=== PATIENT | female | born 1995 | race Caucasian/White ===

== ENCOUNTER 2024-09-27 11:33 | Observation (INO) | payer SELFPAY ==
[2024-09-27] VITALS (16 sets, daily range): BP systolic 92–117; BP diastolic 56–81; PULSE 60–80; RESP 11–18; TEMP 36.2–36.7; O2SAT 93–100; BMI 22.9; BMI 20.7
--- NOTE | 2024-09-27 11:35 | CT_ITS ---
PROCEDURE: STROKE BRAIN/HEAD WITHOUT CONT 09/27/2024 REASON FOR EXAM: NEURO DEFICIT, ACUTE, STROKE SUSPECTED TECHNIQUE: STROKE BRAIN/HEAD WITHOUT CONT Coronal and Sagittal reconstruction series were provided. One or more dose reduction techniques were used (e.g., Automated exposure control, adjustment of the mA and/or kV according to patient size, use of iterative reconstruction technique. RADIATION DOSE SUMMARY: CTDlvol: 44.99 mGy DLP: 762.36 mGycm COMPARISON: None FINDINGS: Brain: Within normal limits for age CSF Spaces: Normal Sinuses/Mastoids: Clear at visualized levels Bones: CT/STROKE Brain/Head without Cont IMPRESSION: NORMAL NONCONTRAST HEAD CT. Reading Location: [facility]
--- NOTE | 2024-09-27 11:35 | CT_ITS ---
PROCEDURE: STROKE BRAIN/HEAD WITHOUT CONT 09/27/2024 REASON FOR EXAM: NEURO DEFICIT, ACUTE, STROKE SUSPECTED TECHNIQUE: STROKE BRAIN/HEAD WITHOUT CONT Coronal and Sagittal reconstruction series were provided. One or more dose reduction techniques were used (e.g., Automated exposure control, adjustment of the mA and/or kV according to patient size, use of iterative reconstruction technique. RADIATION DOSE SUMMARY: CTDlvol: 44.99 mGy DLP: 762.36 mGycm COMPARISON: None FINDINGS: Brain: Within normal limits for age CSF Spaces: Normal Sinuses/Mastoids: Clear at visualized levels Bones: CT/STROKE Brain/Head without Cont IMPRESSION: NORMAL NONCONTRAST HEAD CT. Reading Location: [facility]
--- NOTE | 2024-09-27 11:39 | EKG12_ITS ---
Test Reason : Blood Pressure : */* mmHG Vent. Rate : 65 BPM Atrial Rate : 65 BPM P-R Int : 142 ms QRS Dur : 90 ms QT Int : 414 ms P-R-T Axes : 70 74 53 degrees QTcB Int : 430 ms Normal sinus rhythm Normal ECG Confirmed by SAMY REED, ESAU ([id number]), mapping editor AMINA CHAMBERS ([id number]) on 09/30/2024 7:04:26 AM Referred By: Confirmed By: ESAU PABLO MD
--- NOTE | 2024-09-27 11:39 | EKG12_ITS ---
Test Reason : Blood Pressure : */* mmHG Vent. Rate : 65 BPM Atrial Rate : 65 BPM P-R Int : 142 ms QRS Dur : 90 ms QT Int : 414 ms P-R-T Axes : 70 74 53 degrees QTcB Int : 430 ms Normal sinus rhythm Normal ECG Confirmed by SAMY REED, ESAU ([id number]), script editor AMINA CHAMBERS ([id number]) on 09/30/2024 7:04:26 AM Referred By: Confirmed By: ESAU PABLO MD
--- NOTE | 2024-09-27 11:39 | CT_ITS ---
PROCEDURE: STROKE CTA HEAD AND NECK W/CON 09/27/2024 REASON FOR EXAM: NEURO DEFICIT, ACUTE, STROKE SUSPECTED TECHNIQUE: STROKE CTA HEAD AND NECK W/CON Multiplanar Sagittal and Coronal images were obtained. CONTRAST: Isovue 370 VOLUME: 95 mL One or more dose reduction techniques were used (e.g., Automated exposure control, adjustment of the mA and/or kV according to patient size, use of iterative reconstruction technique). RADIATION DOSE SUMMARY: CTDlvol: 20.5 mGy DLP: 662.75 mGycm COMPARISON: None FINDINGS: Aortic Arch: Normal size and branching pattern. No significant atherosclerotic plaque. Brachiocephalic and Subclavians: Unremarkable RIGHT Carotid: Right CCA: Unremarkable. Right ICA: Unremarkable. Right ECA: Unremarkable. LEFT Carotid: Left CCA: Unremarkable. Left ICA: Unremarkable. Left ECA: Unremarkable. Vertebrals: Codominant. Arise from the subclavians. Both vertebrals form the basilar. RIGHT Vertebral: Unremarkable. LEFT Vertebral: Unremarkable. Anatomy: [place] anatomy is normal. Aneurysm or avm: No intracranial aneurysms or large vascular malformations are identified. Anterior cerebral arteries: Unremarkable: Middle cerebral arteries: Unremarkable. Basilar artery: Unremarkable. Posterior cerebral arteries: Unremarkable. Other major branches of the posterior circulation: Unremarkable. Major venous structures: Unremarkable. Other findings: Neck: Unremarkable lungs: Bones: CT/STROKE CTA Head AND Neck W/Con IMPRESSION: No abnormality is seen. Reading Location: [id number]
[2024-09-27 11:47] LABS: Hematocrit 41.6 % (37-47); Hemoglobin 15.0 g/dL (12.0-15.0); Immature Granulocytes Count 0.010 X10^3/uL (0.0-0.0); Mean Corp Hgb Conc 36.1 g/dL (32-36); Mean Corpuscular Volume 88.7 fL (81-99); Mean Platelet Vol. 9.3 fl (6.2-12.0); NRBC Flagged by Analyzer 0 % (0-5); Platelet Count 294 K/mm3 (150-450); RBC Distribution Width CV 11.5 % (11.6-14.6); RBC Distribution Width SD 36.5 fl (35.1-43.9); Red Blood Count 4.69 M/mm3 (4.2-5.4); White Blood Count 5.8 K/mm3 (4.4-11.0)
[2024-09-27 11:58] LABS: Prothrombin Time (Protime)PT. 14.4 SECONDS (11.7-14.9)
[2024-09-27 11:59] LABS: Partial Thromboplast Time 30.1 Seconds (24.1-36.2)
[2024-09-27 12:13] LABS: Anion Gap 13 (5-15); BUN 6 mg/dL (4-19); BUN/Creat Ratio 8.1 RATIO (10-20); Calcium,Total 9.8 mg/dL (7.6-11.0); Carbon Dioxide 22.4 mmol/L (21.0-32.0); Chloride 102 mmol/L (98-108); Estimated Creatinine Clearance 86.75 ml/min (50-250); Free T3 3.1 pg/mL (2.18-3.98); Glucose 98 mg/dL (70-99); Potassium 4.2 mmol/L (3.3-5.1); Troponin T High Sensitivity < 6 ng/L (<=14)
[2024-09-27] MEDS: 0.9% Normal Saline (1000mL) 1,000 ML 999 ML IV (12:14)
--- NOTE | 2024-09-27 12:20 | RAD_ITS ---
PROCEDURE: CHEST 1 VIEW 09/27/2024 REASON FOR EXAM: NEURO DEFICIT, ACUTE, STROKE SUSPECTED TECHNIQUE: Frontal view of the chest. COMPARISON: None. RAD/Chest 1 View IMPRESSION: No evidence of pulmonary edema. Lungs appear clear throughout. No pleural effusion or pneumothorax is noted. The cardiomediastinal silhouette is within the normal range. No acute osseous process is seen. Negative examination. Reading Location: [place] [address]
--- NOTE | 2024-09-27 12:20 | RAD_ITS ---
PROCEDURE: CHEST 1 VIEW 09/27/2024 REASON FOR EXAM: NEURO DEFICIT, ACUTE, STROKE SUSPECTED TECHNIQUE: Frontal view of the chest. COMPARISON: None. RAD/Chest 1 View IMPRESSION: No evidence of pulmonary edema. Lungs appear clear throughout. No pleural effusion or pneumothorax is noted. The cardiomediastinal silhouette is within the normal range. No acute osseous process is seen. Negative examination. Reading Location: [place] [address]
--- NOTE | 2024-09-27 12:42 | CM.ED ---
Social work Reason for referral: stroke alert SW responded to the stroke alert called in [facility] ED triage. Patient went to imaging and SW was unable to have any emergency contacts to call due to this being patient's first time at [facility]. SW entered patient's room, introducing self and role at [facility]. Patient welcomed SW visit and stated feeling better at this point in time. Patient stated being independently contracted through a [employer] and was at [facility] for a patient when patient started feeling off. Patient stated getting migraines often, but patient's symptoms felt different than normal and patient drove self to [facility] ED. Patient stated patient's was on the way here. Patient denied needing local resources for a PCP or needing resources for being self pay currently. Patient denied needing further resources or supports either. Active listening and supportive presence provided with patient. Laura Giron, FINANCE INSURANCE MANAGER, SWAT TEAM MEMBER
--- NOTE | 2024-09-27 12:42 | CM.ED ---
Social work Reason for referral: stroke alert SW responded to the stroke alert called in [facility] ED triage. Patient went to imaging and SW was unable to have any emergency contacts to call due to this being patient's first time at [facility]. SW entered patient's room, introducing self and role at [facility]. Patient welcomed SW visit and stated feeling better at this point in time. Patient stated being independently contracted through a [employer] and was at [facility] for a patient when patient started feeling off. Patient stated getting migraines often, but patient's symptoms felt different than normal and patient drove self to [facility] ED. Patient stated patient's was on the way here. Patient denied needing local resources for a PCP or needing resources for being self pay currently. Patient denied needing further resources or supports either. Active listening and supportive presence provided with patient. Laura Giron, CODING MANAGER, SITE ACQUISITION SPECIALIST
--- NOTE | 2024-09-27 13:11 | EX.ED.DYSGE1 ---
HPI History of Present Illness Chief Complaint: Stroke Alert Narrative Narrative: Patient is a 28-year-old headaches to the emergency department from work with complaint of changes in vision, difficulty speaking, right-sided numbness. Patient states that her symptoms started around 9 AM this morning. She noted that while at work she developed a headache and then her symptoms persisted and therefore staff sent her down here to be further evaluated. Patient denies any blood thinning medications PFSH PFSH Home Medications ?Medication ?Instructions ?Recorded ?Last Taken ?Type NK 09/27/24 Unknown History Allergy/AdvReac Type Severity Reaction Status Date / Time No Known Allergies Allergy Verified 09/27/24 11:43 Surgical History History of partial hysterectomy Social History Smoking Status: Former smoker ROS ROS ED ROS Narrative Constitutional: Complained of headache as noted above Eyes: Complains of changes in vision double vision Cardiovascular: Denies chest pain Respiratory: Denies coughing wheezing shortness of breath Abdomen: Denies abdominal pain nausea vomit diarrhea : Denies any urinary symptoms Neurological: Complains of right-sided weakness as noted above Musculoskeletal: Denies back pain Skin: Denies any rashes or lesions EXAM Physical Exam Narrative Exam Narrative: General: Patient was sitting in triage in wheelchair did not appear to be upset with tears noted Head: Atraumatic, normocephalic Eyes: PERRL bilaterally, EOMI biotic no conjunctival injection noted Neck: Soft, supple, trachea midline Cardiovascular: Regular rate and rhythm no murmurs gallops rubs noted Respiratory: Clear to auscultation bilaterally Abdomen: Soft, nondistended, nontender to palpation Extremities: +5/5 strength noted in the bilateral upper and lower extremities, radial pulses +2/4 in bladder extremities, no pedal edema on exam Neurological: Patient following commands and that she was at the hospital there is 2024. NIH of 1 GCS 15 Skin: Warm, dry, intact no rashes lesions noted Const Vital Signs: 09/27/24 11:39 09/27/24 11:40 09/27/24 11:49 Temperature 97.1 F L Temperature Source Temporal Pulse Rate 71 79 79 Respiratory Rate 16 16 16 Blood Pressure 116/78 117/81 H 117/81 H Blood Pressure Mean 90 93 93 Pulse Ox 100 99 99 Oxygen Delivery Method Room Air Room Air Room Air 09/27/24 11:53 09/27/24 12:09 09/27/24 12:29 Temperature Temperature Source Pulse Rate 74 80 Respiratory Rate 16 16 Blood Pressure 116/70 101/63 Blood Pressure Mean 85 75 Pulse Ox 93 95 97 Oxygen Delivery Method Room Air Room Air Room Air 09/27/24 12:29 09/27/24 12:45 09/27/24 13:00 Temperature Temperature Source Pulse Rate 71 66 78 Respiratory Rate 16 16 16 Blood Pressure 101/63 101/75 95/74 Blood Pressure Mean 75 83 81 Pulse Ox 97 97 97 Oxygen Delivery Method Room Air Room Air Room Air 09/27/24 13:00 09/27/24 13:06 09/27/24 13:30 Temperature Temperature Source Pulse Rate 76 76 62 Respiratory Rate 16 16 16 Blood Pressure 95/74 95/74 100/65 Blood Pressure Mean 81 81 76 Pulse Ox 97 97 100 Oxygen Delivery Method Room Air Room Air Room Air 09/27/24 14:00 Temperature Temperature Source Pulse Rate 69 Respiratory Rate 11 L Blood Pressure 102/65 Blood Pressure Mean 76 Pulse Ox 100 Oxygen Delivery Method MDM MDM MDM Narrative Medical decision making narrative: Patient is a 28-year-old female who presents to the emergency department chief complaint of dysarthria, numbness and tingling the right side of her body changes in vision as well as a headache. On the differential diagnosis includes but not limited to intracranial hemorrhage, aneurysm, complex migraine. Once workup is obtained reviewed he will be reevaluated. Patient will be given Tylenol and Reglan. Patient CBC reviewed showed no evidence leukocytosis white blood count 5.8, he was 15, plate count of 294. Patient INR normal at 1.1, PT of 14.4. Patient sodium was 137, potassium normal 4.2, creatinine was 0.75. Patient troponin was less than 6 with a delta pending patient's EKG showed sinus rhythm with a rate of 65 bpm. Patient's TSH normal 1.78, free T4 and T3 of 1.30 and 3.1 respectively. Patient chest x-ray reviewed by myself and by radiology showed no acute cardiopulmonary processes. Patient's CT head and brain without contrast showed no acute findings.. CTA head and neck showed no abnormalities noted. Patient was evaluated by teleneurologist Dr. Andres and after discussion we do feel that the risk of tenecteplase outweigh the benefits at this point in time and after discussion with the patient and she would like to hold off. Per teleneurology they are still recommending admission for MRI although this was likely complex migraine. Will discuss case with hospitalist for admission. Patient symptoms have resolved. Discussed case with hospitalist Dr. Hines who accept patient for admission. Patient notified is agreeable this plan all question concerns answered. Lab Data Labs: Laboratory Results - last 24 hr 09/27/24 09/27/24 11:37 11:38 WBC 5.8 RBC 4.69 Hgb 15.0 Hct 41.6 MCV 88.7 MCH 32.0 MCHC 36.1 H RDW Std Deviation 36.5 RDW Coeff of Ghulam 11.5 L Plt Count 294 MPV 9.3 Immature Gran % (Auto) 0.200 Neut % (Auto) 58.6 Lymph % (Auto) 33.7 [place] % (Auto) 5.6 Eos % (Auto) 1.0 Baso % (Auto) 0.9 Absolute Neuts (auto) 3.4 Absolute Lymphs (auto) 1.94 Nucleated RBC % 0 PT 14.4 INR 1.1 APTT 30.1 Sodium 137 Potassium 4.2 Chloride 102 Carbon Dioxide 22.4 Anion Gap 13 BUN 6 Creatinine 0.75 Estim Creat Clear Calc 86.75 Est GFR (MDRD) Non-Af 110 BUN/Creatinine Ratio 8.1 L Glucose 98 Calcium 9.8 Troponin T High Sens < 6 TSH 1.780 Free T4 1.30 Free T3 pg/dL 3.1 POC Glucose 96 Radiography Diagnostic Testing: Clinical Impression(s) from Imaging Studies Brain CT 09/27/24 11:35 IMPRESSION: NORMAL NONCONTRAST HEAD CT. Reading Location: [id number] Head/Neck CTA 09/27/24 11:39 IMPRESSION: No abnormality is seen. Reading Location: [id number] Chest X-Ray 09/27/24 12:20 IMPRESSION: No evidence of pulmonary edema. Lungs appear clear throughout. No pleural effusion or pneumothorax is noted. The cardiomediastinal silhouette is within the normal range. No acute osseous process is seen. Negative examination. Reading Location: [place] [address] Discharge Plan Triage Chief Complaint: Stroke Alert ED Provider: Matthew Mead Dx/Rx/DC Orders Clinical Impression: Right arm numbness, Numbness and tingling of right leg, Changes in vision, Headache Prescriptions: No Action NK Primary Care Provider: Care Physician,No Primary Referrals: Care Physician,No Primary [Primary Care Provider] - Print Language: Kazakh Disposition Disposition: Acute Care Hospital [facility]
--- NOTE | 2024-09-27 14:08 | PCM.HP.STD ---
HPI - General General Date of Admission: 09/27/24 Date of Service: 09/27/24 Chief Complaint: Headache with strokelike symptoms HPI Narrative VINITA HIDALGO, is a 28 F who presented to [facility] ED on 09/27/2024 with headache and strokelike symptoms. Patient presented from work with complaint of vision changes, difficulty speaking and right-sided facial numbness. Has history of migraines but has never had secondary symptoms like these before. She typically takes Excedrin for the migraines with mild to moderate relief. Has never been on any other medications for migraines. In the ED she was normotensive, normal sinus rhythm, satting well on room air. CBC and BMP were benign. CT brain and CTA head/neck were unremarkable. Chest x-ray unremarkable. Evaluated by teleneurology who noted the symptoms are likely secondary to complex migraine but cannot rule out stroke, so recommended admission for stroke evaluation. Hospitalist was then contacted for admission. I saw the patient at bedside in the ED, several family members were present. Patient was mildly fatigued appearing but otherwise sitting back comfortably in bed, conversing normally and in no acute distress. She reported continued headache though it is improved from earlier. Denies any vision changes or facial numbness. Is not having any difficulty with speaking. Has mild nausea currently, improved from previous. No other acute concerns currently. Will be admitted for further management. [facility] Home Medications ?Medication ?Instructions ?Recorded ?Last Taken ?Type NK 09/27/24 Unknown History Allergy/AdvReac Type Severity Reaction Status Date / Time No Known Allergies Allergy Verified 09/27/24 11:43 Surgical History History of partial hysterectomy Social History Smoking Status: Former smoker ROS Constitutional Constitutional: Reports fatigue; Denies chills, fever(s) or weakness Eyes Eyes: Denies change in vision Cardiovascular Cardiovascular: Denies chest pain Respiratory/Chest Respiratory/Chest: Denies shortness of breath at rest Gastrointestinal Gastrointestinal: Reports nausea; Denies abdominal pain or vomiting Neurologic Neurologic: Reports headache(s); Denies abnormal speech, confusion, dizziness, focal weakness, numbness or tingling Vital Signs Vital Signs Vital Signs: 09/27/24 11:39 09/27/24 11:40 09/27/24 11:49 Temperature 97.1 F L Temperature Source Temporal Pulse Rate 71 79 79 Respiratory Rate 16 16 16 Blood Pressure 116/78 117/81 H 117/81 H Blood Pressure Mean 90 93 93 Pulse Ox 100 99 99 Oxygen Delivery Method Room Air Room Air Room Air 09/27/24 11:53 09/27/24 12:09 09/27/24 12:29 Temperature Temperature Source Pulse Rate 74 80 Respiratory Rate 16 16 Blood Pressure 116/70 101/63 Blood Pressure Mean 85 75 Pulse Ox 93 95 97 Oxygen Delivery Method Room Air Room Air Room Air 09/27/24 12:29 09/27/24 12:45 09/27/24 13:00 Temperature Temperature Source Pulse Rate 71 66 78 Respiratory Rate 16 16 16 Blood Pressure 101/63 101/75 95/74 Blood Pressure Mean 75 83 81 Pulse Ox 97 97 97 Oxygen Delivery Method Room Air Room Air Room Air 09/27/24 13:00 09/27/24 13:06 09/27/24 13:30 Temperature Temperature Source Pulse Rate 76 76 62 Respiratory Rate 16 16 16 Blood Pressure 95/74 95/74 100/65 Blood Pressure Mean 81 81 76 Pulse Ox 97 97 100 Oxygen Delivery Method Room Air Room Air Room Air 09/27/24 14:00 Temperature Temperature Source Pulse Rate 69 Respiratory Rate 11 L Blood Pressure 102/65 Blood Pressure Mean 76 Pulse Ox 100 Oxygen Delivery Method Weight Weight: 57 kg Body Mass Index (BMI) 22.9 Physical Exam Const alert, oriented x3, no apparent distress, average body habitus, healthy appearing and well nourished Constitutional Narrative: Pleasant younger female, mildly fatigued appearing but otherwise sitting back comfortably in bed, conversing normally, in no acute distress. General Appearance: cooperative, comfortable, well kempt and well developed HEENT normocephalic, head/scalp atraumatic, hearing grossly normal bilaterally, nasal mucous membranes and turbinates normal and moist oral mucous membranes Eyes PERRL, EOMs intact bilaterally and conjunctivae normal Neck full ROM Chest inspection of chest normal Resp normal respiratory effort, normal air movement, no use of accessory muscles and clear to auscultation bilaterally Cardio regular rate, regular rhythm, no murmurs and peripheral pulses 2+ throughout GI normal to inspection, nondistended, normoactive bowel sounds, soft to palpation, non-tender and non-distended Back/Spine normal ROM Extremity normal to inspection, full ROM and no pedal edema Skin no rashes or lesions noted Neuro CN's II-XII intact bilaterally, moves all extremities and no focal motor deficits Speech: speech normal Motor Exam: strength 5/5 throughout Psych mental status grossly normal Results Lab / Micro Data 09/27/24 11:38 09/27/24 11:38 Labs: Laboratory Results - last 24 hr 09/27/24 11:37: POC Glucose 96 09/27/24 11:38: WBC 5.8, RBC 4.69, Hgb 15.0, Hct 41.6, MCV 88.7, MCH 32.0, MCHC 36.1 H, RDW Std Deviation 36.5, RDW Coeff of Ghulam 11.5 L, Plt Count 294, MPV 9.3, Immature Gran % (Auto) 0.200, Neut % (Auto) 58.6, Lymph % (Auto) 33.7, [place] % (Auto) 5.6, Eos % (Auto) 1.0, Baso % (Auto) 0.9, Absolute Neuts (auto) 3.4, Absolute Lymphs (auto) 1.94, Nucleated RBC % 0, PT 14.4, INR 1.1, APTT 30.1, Sodium 137, Potassium 4.2, Chloride 102, Carbon Dioxide 22.4, Anion Gap 13, BUN 6, Creatinine 0.75, Estim Creat Clear Calc 86.75, Est GFR (MDRD) Non-Af 110, BUN/Creatinine Ratio 8.1 L, Glucose 98, Calcium 9.8, Troponin T High Sens < 6, TSH 1.780, Free T4 1.30, Free T3 pg/dL 3.1 Imaging Radiology Impression Brain CT 09/27/24 11:35 IMPRESSION: NORMAL NONCONTRAST HEAD CT. Reading Location: [id number] Head/Neck CTA 09/27/24 11:39 IMPRESSION: No abnormality is seen. Reading Location: [id number] Chest X-Ray 09/27/24 12:20 IMPRESSION: No evidence of pulmonary edema. Lungs appear clear throughout. No pleural effusion or pneumothorax is noted. The cardiomediastinal silhouette is within the normal range. No acute osseous process is seen. Negative examination. Reading Location: [place] [address] Assessment & Plan Assessment/Plan (1) Headache: (2) Changes in vision: PLAN: Plan Patient is a 28-year-old female who presented [facility] ED on 09/27/2024 with headache and strokelike symptoms. 1. Headache with strokelike symptoms with history of migraines, CVA rule out ? Admit under observation status to PCU. Neurology consulted. Presented with headache with vision changes, difficulty speaking and right facial numbness. NIH score of [address] brain and CTA head/neck negative. Has history of migraines, typically has around 2 a month and takes Excedrin for relief. Strong family history of migraines, other family members have taken Topamax and/or triptans for relief. Seems most consistent with complex migraine but cannot rule out CVA. Orders placed per stroke protocol order set. MRI brain and echo with bubble study ordered. Lipid panel, A1c and TSH ordered. Given Tylenol 1 g and IV Reglan in the ED with moderate relief of headache. Tylenol ordered as needed and can order Reglan dosing as needed for worsening headache while inpatient. DVT prophylaxis: SCDs CODE STATUS: Full code, verified Expect disposition: Home, 1 to 2 days Total clinical time spent by myself addressing the patient's medical issues, reviewing all the data, and collaborating with patient's care team: 55 minutes. Charges/Coding Visit Charges Inpatient E&M: 48800 Init Hosp L2
--- NOTE | 2024-09-27 14:08 | PCM.HP.STD ---
HPI - General General Date of Admission: 09/27/24 Date of Service: 09/27/24 Chief Complaint: Headache with strokelike symptoms HPI Narrative VINITA HIDALGO, is a 28 F who presented to [facility] ED on 09/27/2024 with headache and strokelike symptoms. Patient presented from work with complaint of vision changes, difficulty speaking and right-sided facial numbness. Has history of migraines but has never had secondary symptoms like these before. She typically takes Excedrin for the migraines with mild to moderate relief. Has never been on any other medications for migraines. In the ED she was normotensive, normal sinus rhythm, satting well on room air. CBC and BMP were benign. CT brain and CTA head/neck were unremarkable. Chest x-ray unremarkable. Evaluated by teleneurology who noted the symptoms are likely secondary to complex migraine but cannot rule out stroke, so recommended admission for stroke evaluation. Hospitalist was then contacted for admission. I saw the patient at bedside in the ED, several family members were present. Patient was mildly fatigued appearing but otherwise sitting back comfortably in bed, conversing normally and in no acute distress. She reported continued headache though it is improved from earlier. Denies any vision changes or facial numbness. Is not having any difficulty with speaking. Has mild nausea currently, improved from previous. No other acute concerns currently. Will be admitted for further management. [facility] Home Medications ?Medication ?Instructions ?Recorded ?Last Taken ?Type NK 09/27/24 Unknown History Allergy/AdvReac Type Severity Reaction Status Date / Time No Known Allergies Allergy Verified 09/27/24 11:43 Surgical History History of partial hysterectomy Social History Smoking Status: Former smoker ROS Constitutional Constitutional: Reports fatigue; Denies chills, fever(s) or weakness Eyes Eyes: Denies change in vision Cardiovascular Cardiovascular: Denies chest pain Respiratory/Chest Respiratory/Chest: Denies shortness of breath at rest Gastrointestinal Gastrointestinal: Reports nausea; Denies abdominal pain or vomiting Neurologic Neurologic: Reports headache(s); Denies abnormal speech, confusion, dizziness, focal weakness, numbness or tingling Vital Signs Vital Signs Vital Signs: 09/27/24 11:39 09/27/24 11:40 09/27/24 11:49 Temperature 97.1 F L Temperature Source Temporal Pulse Rate 71 79 79 Respiratory Rate 16 16 16 Blood Pressure 116/78 117/81 H 117/81 H Blood Pressure Mean 90 93 93 Pulse Ox 100 99 99 Oxygen Delivery Method Room Air Room Air Room Air 09/27/24 11:53 09/27/24 12:09 09/27/24 12:29 Temperature Temperature Source Pulse Rate 74 80 Respiratory Rate 16 16 Blood Pressure 116/70 101/63 Blood Pressure Mean 85 75 Pulse Ox 93 95 97 Oxygen Delivery Method Room Air Room Air Room Air 09/27/24 12:29 09/27/24 12:45 09/27/24 13:00 Temperature Temperature Source Pulse Rate 71 66 78 Respiratory Rate 16 16 16 Blood Pressure 101/63 101/75 95/74 Blood Pressure Mean 75 83 81 Pulse Ox 97 97 97 Oxygen Delivery Method Room Air Room Air Room Air 09/27/24 13:00 09/27/24 13:06 09/27/24 13:30 Temperature Temperature Source Pulse Rate 76 76 62 Respiratory Rate 16 16 16 Blood Pressure 95/74 95/74 100/65 Blood Pressure Mean 81 81 76 Pulse Ox 97 97 100 Oxygen Delivery Method Room Air Room Air Room Air 09/27/24 14:00 Temperature Temperature Source Pulse Rate 69 Respiratory Rate 11 L Blood Pressure 102/65 Blood Pressure Mean 76 Pulse Ox 100 Oxygen Delivery Method Weight Weight: 57 kg Body Mass Index (BMI) 22.9 Physical Exam Const alert, oriented x3, no apparent distress, average body habitus, healthy appearing and well nourished Constitutional Narrative: Pleasant younger female, mildly fatigued appearing but otherwise sitting back comfortably in bed, conversing normally, in no acute distress. General Appearance: cooperative, comfortable, well kempt and well developed HEENT normocephalic, head/scalp atraumatic, hearing grossly normal bilaterally, nasal mucous membranes and turbinates normal and moist oral mucous membranes Eyes PERRL, EOMs intact bilaterally and conjunctivae normal Neck full ROM Chest inspection of chest normal Resp normal respiratory effort, normal air movement, no use of accessory muscles and clear to auscultation bilaterally Cardio regular rate, regular rhythm, no murmurs and peripheral pulses 2+ throughout GI normal to inspection, nondistended, normoactive bowel sounds, soft to palpation, non-tender and non-distended Back/Spine normal ROM Extremity normal to inspection, full ROM and no pedal edema Skin no rashes or lesions noted Neuro CN's II-XII intact bilaterally, moves all extremities and no focal motor deficits Speech: speech normal Motor Exam: strength 5/5 throughout Psych mental status grossly normal Results Lab / Micro Data 09/27/24 11:38 09/27/24 11:38 Labs: Laboratory Results - last 24 hr 09/27/24 11:37: POC Glucose 96 09/27/24 11:38: WBC 5.8, RBC 4.69, Hgb 15.0, Hct 41.6, MCV 88.7, MCH 32.0, MCHC 36.1 H, RDW Std Deviation 36.5, RDW Coeff of Ghulam 11.5 L, Plt Count 294, MPV 9.3, Immature Gran % (Auto) 0.200, Neut % (Auto) 58.6, Lymph % (Auto) 33.7, [place] % (Auto) 5.6, Eos % (Auto) 1.0, Baso % (Auto) 0.9, Absolute Neuts (auto) 3.4, Absolute Lymphs (auto) 1.94, Nucleated RBC % 0, PT 14.4, INR 1.1, APTT 30.1, Sodium 137, Potassium 4.2, Chloride 102, Carbon Dioxide 22.4, Anion Gap 13, BUN 6, Creatinine 0.75, Estim Creat Clear Calc 86.75, Est GFR (MDRD) Non-Af 110, BUN/Creatinine Ratio 8.1 L, Glucose 98, Calcium 9.8, Troponin T High Sens < 6, TSH 1.780, Free T4 1.30, Free T3 pg/dL 3.1 Imaging Radiology Impression Brain CT 09/27/24 11:35 IMPRESSION: NORMAL NONCONTRAST HEAD CT. Reading Location: [id number] Head/Neck CTA 09/27/24 11:39 IMPRESSION: No abnormality is seen. Reading Location: [id number] Chest X-Ray 09/27/24 12:20 IMPRESSION: No evidence of pulmonary edema. Lungs appear clear throughout. No pleural effusion or pneumothorax is noted. The cardiomediastinal silhouette is within the normal range. No acute osseous process is seen. Negative examination. Reading Location: [place] [id number] Assessment & Plan Assessment/Plan (1) Headache: (2) Changes in vision: PLAN: Plan Patient is a 28-year-old female who presented [facility] ED on 09/27/2024 with headache and strokelike symptoms. 1. Headache with strokelike symptoms with history of migraines, CVA rule out ? Admit under observation status to PCU. Neurology consulted. Presented with headache with vision changes, difficulty speaking and right facial numbness. NIH score of [address] brain and CTA head/neck negative. Has history of migraines, typically has around 2 a month and takes Excedrin for relief. Strong family history of migraines, other family members have taken Topamax and/or triptans for relief. Seems most consistent with complex migraine but cannot rule out CVA. Orders placed per stroke protocol order set. MRI brain and echo with bubble study ordered. Lipid panel, A1c and TSH ordered. Given Tylenol 1 g and IV Reglan in the ED with moderate relief of headache. Tylenol ordered as needed and can order Reglan dosing as needed for worsening headache while inpatient. DVT prophylaxis: SCDs CODE STATUS: Full code, verified Expect disposition: Home, 1 to 2 days Total clinical time spent by myself addressing the patient's medical issues, reviewing all the data, and collaborating with patient's care team: 55 minutes. Charges/Coding Visit Charges Inpatient E&M: 23984 Init Hosp L2
--- NOTE | 2024-09-27 14:15 | MRI_ITS ---
EXAM: MRI brain without contrast CLINICAL HISTORY: Stroke-like symptoms COMPARISON: Noncontrast CT head, CTA head and neck 09/27/2024. TECHNIQUE: MRI of the brain was performed according to standard departmental protocol utilizing: Sagittal and axial T1, axial FLAIR, fat saturated fast spin echo axial T2, Susceptibility, and coronal T1 -weighted image were obtained. FINDINGS: The ventricles, sulci, and cisterns are age-appropriate in size. There is no evidence of acute intracranial bleed or focal infarction. There is no midline shift, mass effect, or extra-axial collection. No area of restricted diffusion are identified on DWI images. No abnormal T2 bright signal in the white matter is identified. The basal ganglia, aaliyah, pituitary, corpus callosum and cerebellum appear normal. The visualized paranasal sinuses, mastoids, and orbits are unremarkable. The flow voids of the major intracranial vessels are patent. The visualized extracranial structures, within limits of technique, are not otherwise remarkable. MRI/Brain without Contrast IMPRESSION: Unremarkable noncontrast MRI brain. Reading Location: [id number]
--- NOTE | 2024-09-27 14:15 | MRI_ITS ---
EXAM: MRI brain without contrast CLINICAL HISTORY: Stroke-like symptoms COMPARISON: Noncontrast CT head, CTA head and neck 09/27/2024. TECHNIQUE: MRI of the brain was performed according to standard departmental protocol utilizing: Sagittal and axial T1, axial FLAIR, fat saturated fast spin echo axial T2, Susceptibility, and coronal T1 -weighted image were obtained. FINDINGS: The ventricles, sulci, and cisterns are age-appropriate in size. There is no evidence of acute intracranial bleed or focal infarction. There is no midline shift, mass effect, or extra-axial collection. No area of restricted diffusion are identified on DWI images. No abnormal T2 bright signal in the white matter is identified. The basal ganglia, aaliyah, pituitary, corpus callosum and cerebellum appear normal. The visualized paranasal sinuses, mastoids, and orbits are unremarkable. The flow voids of the major intracranial vessels are patent. The visualized extracranial structures, within limits of technique, are not otherwise remarkable. MRI/Brain without Contrast IMPRESSION: Unremarkable noncontrast MRI brain. Reading Location: [id number]
[2024-09-27 14:26] LABS: Troponin T High Sens 2 HR < 6 ng/L (<=14)
--- NOTE | 2024-09-27 14:52 | CHAPLAIN ---
Type of Pastoral Visit _x__ Initial Visit ___ Follow-up Visit ___ On-call Visit ___ General Patient Visit ___ Spiritual Assessment ___ Family Conference ___ Bereavement ___ Rapid Response ___ Code Blue ___ Other (describe below) Pastoral Care Referral From ___ Patient ___ Family ___ Nurse ___ Physician _x__ Front Sight Attacher ___ Mobile Home Laborer ___ Other (describe below) Sacrament/Intervention ___ Active listening ___ Anointing ___ Hoahaoism ___ Bereavement ___ Communion ___ Maggy exploration ___ ___ Life review ___ Prayer ___ Reconciliation ___ Sacrament of Sick _x__ Supportive presence ___ Wedding ___ Other (describe below) Pastoral Comments SW recommended a visit to this patient waiting in the ED to be moved to a room; patient is not from around here and is was thought that she might like company and support; entering room, this m1 armor crewman discovered several family members who had come to the hospital in support of pt; 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
--- NOTE | 2024-09-27 14:52 | CHAPLAIN ---
Type of Pastoral Visit _x__ Initial Visit ___ Follow-up Visit ___ On-call Visit ___ General Patient Visit ___ Spiritual Assessment ___ Family Conference ___ Bereavement ___ Rapid Response ___ Code Blue ___ Other (describe below) Pastoral Care Referral From ___ Patient ___ Family ___ Nurse ___ Physician _x__ Librarian School ___ [place] Worker Helper ___ Other (describe below) Sacrament/Intervention ___ Active listening ___ Anointing ___ Mu-Ism ___ Bereavement ___ Communion ___ Maggy exploration ___ ___ Life review ___ Prayer ___ Reconciliation ___ Sacrament of Sick _x__ Supportive presence ___ Wedding ___ Other (describe below) Pastoral Comments SW recommended a visit to this patient waiting in the ED to be moved to a room; patient is not from around here and is was thought that she might like company and support; entering room, this nephrologist discovered several family members who had come to the hospital in support of pt; 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
[2024-09-27] MEDS: Acetaminophen/Butalbital/Caffe 1 Tablet PO (16:20)
[2024-09-27 17:52] LABS: Troponin T High Sens 4 HR < 6 ng/L (<=14)
[2024-09-28 01:00] VITALS: BP 91/61; PULSE 73; RESP 16; TEMP 36.6; O2SAT 97
[2024-09-28 04:01] VITALS: BMI 20.7
[2024-09-28 04:30] VITALS: BP 94/61; PULSE 85; RESP 16; TEMP 36.4; O2SAT 98
[2024-09-28 08:01] LABS: Cholesterol 129 mg/dL (<=200); Low Density Lipoprotein Calc. 49 mg/dL; Triglycerides 45 mg/dL; Very Low Density Lipoprotein 9 mg/dL (5-40); cholesterol:hdl ratio screen 1.83
[2024-09-28 08:07] VITALS: BMI 20.7
[2024-09-28 09:23] VITALS: BP 93/55; PULSE 61; RESP 18; TEMP 36.4; O2SAT 100
--- NOTE | 2024-09-28 09:59 | DCINST_ITS ---
Discharge Instructions DC O2, CPAP, BIPAP needs Home O2 Discharge instructions: No Dressing / Incision Discharge Activity: - (Increase activity as tolerated) Follow Up Care Test Results: Test results from this visit will be discussed in further detail at your follow- up appointment, if applicable. Discharge Plan Admission Admit Date/Time: 09/27/24 14:12 Primary Reason for Your Visit: Complex migraine Attending Provider: Nolvia Irvin Primary Care Provider: Care Physician,No Primary Consulting Providers: Faizan Matthews; Kale Hill; Esperanza Andres; Carissa Hagan; Michelle Javed; Aung Mcdonald; Chasity Briones; Tang Harrington; Deion Lewis; Jack Oneill; Carolyn Eaton; Jasen Rollins; Missy Blackwood; Marina Irving; Janneth Antunez; Ramesh Lozano; Thania Cespedes; Darío Aguila; Kellee Tucker; Stan Juarez; Jay Hines Instructions Patient Instructions: Migraine Triggers, ED, Migraine (Classical) Additional Instructions / Restrictions: - It is advised you schedule a follow-up appoint with a primary care physician in your area -For any concerning signs or symptoms please call 911 or proceed to the nearest emergency department -Please follow-up with neurology upon discharge for suspected complex migraine, please call Dr. Anaya's office upon discharge to schedule an appointment for suspected complex migraine (ph [phone]) Discharge Orders/Prescriptions Prescriptions: No Action NK Referrals / Follow Up: Martín Anaya MD [Non-Staff -Ordering Privileges] - Care Physician,No Primary [Primary Care Provider] - (It is advised you schedule a follow-up appoint with a primary care physician in your area) Disposition Disposition (needs filled in before D/C Order can be placed): Home, Self Care
--- NOTE | 2024-09-28 10:02 | PCM.DC.SUM ---
Providers Date of Admission: 09/27/24 Date of Discharge: 09/28/24 Primary Care Physician: Sarah Primary Care Phys Consultations 09/27/24 15:58 Consult: Tele-Neurology Routine Consulting Provider: [facility] Reason for Consult: Acute Ischemic Stroke/TIA EMERGENT Consult: No Notified: Yes Date Notified: 09/27/24 Time Notified: 16:50 Method of Notification: Answering Service Nursing Unit Staff Notify [facility] of Tele-Neurology Consult: Yes Reason For Visit: STROKELIKE SYMPTOMS Diagnosis Discharge Diagnosis (1) Headache: Status: Acute Code(s): R51.9 - Headache, unspecified (2) Changes in vision: Status: Acute Code(s): H53.9 - Unspecified visual disturbance (3) Migraine: Status: Acute Code(s): G43.909 - Migraine, unspecified, not intractable, without status migrainosus Plan #Complex migraine Medications at Discharge Home Medications NK 09/27/24 Hospital Course Summary of Care Provided Minutes Spent on Discharge: 20 Hospital Course: Per HPI: VINITA HIDALGO, is a 28 F who presented to [facility] ED on 09/27/2024 with headache and strokelike symptoms. Patient presented from work with complaint of vision changes, difficulty speaking and right-sided facial numbness. Has history of migraines but has never had secondary symptoms like these before. She typically takes Excedrin for the migraines with mild to moderate relief. Has never been on any other medications for migraines. In the ED she was normotensive, normal sinus rhythm, satting well on room air. CBC and BMP were benign. CT brain and CTA head/neck were unremarkable. Chest x-ray unremarkable. Evaluated by teleneurology who noted the symptoms are likely secondary to complex migraine but cannot rule out stroke, so recommended admission for stroke evaluation. Hospitalist was then contacted for admission. I saw the patient at bedside in the ED, several family members were present. Patient was mildly fatigued appearing but otherwise sitting back comfortably in bed, conversing normally and in no acute distress. She reported continued headache though it is improved from earlier. Denies any vision changes or facial numbness. Is not having any difficulty with speaking. Has mild nausea currently, improved from previous. No other acute concerns currently. Will be admitted for further management. INTERVAL HISTORY: MRI negative, patient's symptoms completely resolved at 5 PM the day prior, headache is significantly improved and reports symptoms improved with improvement in headache. Most consistent with complex migraine, patient refused echocardiogram and to wait for repeat teleneurology evaluation. Neuroexam completely normal, MRI negative, did discuss the point of an echocardiogram and to evaluate for PFO and teleneurology reevaluation, patient verbalized understanding and the reason why these things were ordered however given resolution of her symptoms and this being most consistent with a complex migraine patient requested to be discharged. Given the above do feel like this is reasonable, patient advised to return with any further signs or symptoms, questions or concerns. Advised to establish with a primary care physician and she verbalized understanding. Also gave additional information for Dr. Anaya for neurology follow-up Physical Exam Narrative General: Alert, oriented, no apparent distress HEENT: Atraumatic, normocephalic Eyes: Anicteric, normal conjunctiva, extraocular movements intact, pupils equal Neck: Supple Respiratory: Clear to auscultation bilaterally, normal respiratory effort Cardiovascular: Regular rate and rhythm GI: Soft, nontender, nondistended Extremities: No edema Musculoskeletal: Strength 5 out of 5 in right upper extremity, 5 out of 5 left upper extremity, 5 out of 5 right lower extremity, 5 out of 5 left lower extremity Neuro: Has Botox in forehead still unable to significantly raise either eyebrow however no overt focal neurological deficits, cranial nerves II through XII intact, [id number] without significant difficulty bilaterally Skin: No rashes appreciated Psych: Cooperative Weight / BMI Weight Weight: 58.4 kg Body Mass Index (BMI) 20.7 ABG / Lab / Microbiology Data 09/27/24 11:38 09/27/24 11:38 Laboratory: Laboratory Results - last 24 hr 09/27/24 16:40: Troponin T Hi Sens 4Hr < 6 09/28/24 07:03: Triglycerides 45, Cholesterol 129, LDL Cholesterol, Calc 49, VLDL Cholesterol 9, HDL Cholesterol 71, Cholesterol/HDL Ratio 1.83 Radiography Diagnostic Testing: Radiology Impression Brain MRI 09/27/24 14:15 IMPRESSION: Unremarkable noncontrast MRI brain. Reading Location: [id number] D/C Instructions DC O2, CPAP, BIPAP Needs Home O2 Discharge instructions: No Meaningful Use Info Meaningful Use Meaningful Use Diagnoses (Choose all that apply): None applicable Discharge Plan Admission Admit Date/Time: 09/27/24 14:12 Primary Reason for Your Visit: Complex migraine Attending Provider: Nolvia Irvin Primary Care Provider: Care Physician,No Primary Consulting Providers: Faizan Matthews; Kale Hill; Esperanza Andres; Carissa Hagan; Michelle Javed; Aung Mcdonald; Chasity Briones; Tang Harrington; Deion Lewis; Jack Oneill; Carolyn Eaton; Jasen Rollins; Missy Blackwood; Marina Irving; Janneth Antunez; Ramesh Lozano; Thania Cespedes; Darío Aguila; Kellee Tucker; Stan Juarez; Jay Hines Instructions Patient Instructions: Migraine Triggers, ED, Migraine (Classical) Additional Instructions / Restrictions: - It is advised you schedule a follow-up appoint with a primary care physician in your area -For any concerning signs or symptoms please call 911 or proceed to the nearest emergency department -Please follow-up with neurology upon discharge for suspected complex migraine, please call Dr. Anaya's office upon discharge to schedule an appointment for suspected complex migraine (ph [phone]) Discharge Orders/Prescriptions Prescriptions: No Action NK Referrals / Follow Up: Martín Anaya MD [Non-Staff -Ordering Privileges] - Care Physician,No Primary [Primary Care Provider] - (It is advised you schedule a follow-up appoint with a primary care physician in your area) Disposition Disposition (needs filled in before D/C Order can be placed): Home, Self Care Charges/Coding Visit Charges Inpatient E&M: 99610 Disch Hosp
--- NOTE | 2024-09-28 11:14 | CASEMGMT ---
Social Work PHQ-9 not completed as pt did not have a stroke. ANAND Aguiar
--- NOTE | 2024-09-28 11:14 | CASEMGMT ---
Social Work PHQ-9 not completed as pt did not have a stroke. ANAND Aguiar
== END 2024-09-28 10:14 | disposition home or self-care (01) ==
LOC: ED 14:14 → PCU 14:30
PROVIDERS: Admitting Provider Hospitalist; Emergency Provider Emergency Medicine; Visit Provider Internal Medicine
DX: G43.109 Migraine with aura, not intractable, without status migrainosus (principal); R20.2 Paresthesia of skin; Z87.891 Personal history of nicotine dependence; R47.9 Unspecified speech disturbances; H53.9 Unspecified visual disturbance; R20.0 Anesthesia of skin; R47.1 Dysarthria and anarthria
CPT/HCPCS: 36415; 70450; 70496; 70498; 70551; 71045; 80048; 80061; 82962; 83036; 84439; 84443; 84481; 84484; 85025; 85610; 85730; 93005; 94762; 96374; 99221; 99285; Q9967; A4216; G0378